=== PATIENT | male | born 1965 | race African-American/Black ===

== ENCOUNTER 2022-05-18 17:22 | Emergency (ER) | payer BC ==
[2022-05-18 17:34] VITALS: BP 146/86; PULSE 95; RESP 18; TEMP 98.1; BMI 34.0
== END 2022-05-18 19:38 | disposition left against medical advice (07) ==
LOC: JER 17:22
DX: R07.9 Chest pain, unspecified (principal)
CPT/HCPCS: 93005; 93010; 99283-25

== ENCOUNTER 2024-12-29 11:42 | Emergency (ER) | payer BC ==
[2024-12-29 11:52] VITALS: BP 141/90; PULSE 63; RESP 18; TEMP 99; BMI 33.2
[2024-12-29 12:54] LABS: ABSOLUTE IMMATURE GRANULOCYTES 0.01 x10^3/uL (0.0-0.031); BASOPHILS # 0.04 x10^3/uL (0.01-0.08); EOSINOPHIL % 1.2 % (0.8-7.0); EOSINOPHILS # 0.08 x10^3/uL (0.04-0.54); MCHC 33.5 g/dl (32.3-36.5); MEAN CELL VOLUME 88.5 fl (79.0-92.2); MEAN PLT VOLUME 9.5 fl (9.4-12.4); MONOCYTE # 0.67 x10^3/uL (0.30-0.82); MONOCYTE % 10.3 % (5.3-12.2); RDW 12.9 % (12.2-16.4)
[2024-12-29 13:03] LABS: INR 1.08 (0.83-1.09); PROTHROMBIN TIME (PATIENT) 12.0 SEC (9.7-13.0)
[2024-12-29 13:06] LABS: ACTIVATED PTT 29.5 SECONDS (25.2-36.5)
[2024-12-29 13:14] LABS: ALK PHOS 66.0 U/L (45-117); CO2 31.0 mmol/L (21-32); CREATININE 1.1 mg/dl (0.6-1.3); GLUCOSE,RANDOM 93.0 mg/dl (74-106); SGOT/AST 23.0 U/L (15-37); SGPT/ALT 32.0 U/L (7-52); TOT PROT 6.9 g/dl (6.4-8.2)
[2024-12-29 14:14] LABS: ABSOLUTE IMMATURE GRANULOCYTES 0.01 x10^3/uL (0.0-0.031); BASOPHILS # 0.04 x10^3/uL (0.01-0.08); EOSINOPHIL % 1.5 % (0.8-7.0); EOSINOPHILS # 0.09 x10^3/uL (0.04-0.54); MCHC 33.4 g/dl (32.3-36.5); MEAN CELL VOLUME 88.4 fl (79.0-92.2); MEAN PLT VOLUME 9.3 fl (9.4-12.4); MONOCYTE # 0.67 x10^3/uL (0.30-0.82); MONOCYTE % 11.0 % (5.3-12.2); RDW 12.9 % (12.2-16.4)
[2024-12-29 17:11] LABS: HIV INTERPRETATION NEGATIVE (NEGATIVE)
[2024-12-29 17:12] LABS: HCV DIAGNOSTIC IN-HOUSE W/RFLX NON-REACTIVE (NONREACTIVE)
== END 2024-12-29 14:50 | disposition home or self-care (01) ==
LOC: FER 11:42
DX: K62.5 Hemorrhage of anus and rectum (principal); R42 Dizziness and giddiness; R53.1 Weakness; R14.0 Abdominal distension (gaseous)
CPT/HCPCS: 36415; 80053; 82272; 83605; 85025; 85610; 85730; 86803; 86850; 86900; 86901; 87389; 99283-25